=== PATIENT | male | born 1995 | race Caucasian/White ===

== ENCOUNTER 2017-01-22 20:48 | Emergency (ER) | payer BC, OTHER ==
[2017-01-22 21:00] VITALS: BP 143/77
--- NOTE | 2017-01-22 21:04 | UC ---
Throat Pain/Nasal Henrik HPI - HPI Summary HPI Summary: complaint of nasal congestion and cough that started yesterday intermittent headaches productive cough with green sputum feels a tightness in his chest wheezing at night and coughing fits denies sore throat, ear pain denies muscle aches denies fever taking mucinex without relief - History of Current Complaint Chief Complaint: UCRespiratory Stated Complaint: URI Time Seen by Provider: 01/22/17 20:57 Hx Obtained From: Patient - Allergies/Home Medications Allergies/Adverse Reactions: Allergies Allergy/AdvReac Type Severity Reaction Status Date / Time No Known Allergies Allergy Verified 01/22/17 21:00 PMH/Surg Hx/FS Hx/Imm Hx Previously Healthy: Yes Endocrine History Of: 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 Denies: Diabetes Cardiovascular History Of: Denies: Cardiac Disorders, Hypertension Respiratory History Of: Denies: COPD, Asthma GI/ History Of: Denies: Ulcer Psychological History Of: Denies: Anxiety, Depression - Surgical History Surgical History: None - Family History Known Family History: Positive: Hypertension, Diabetes, Other - thyroid problems Negative: Cardiac Disease - Social History Alcohol Use: None Substance Use Type: None Smoking Status (MU): Light Every Day Tobacco Smoker Type: Smokeless Tobacco Amount Used/How Often: 2 CIG/DAY Household Exposure Type: Cigarettes Cessation Counseling: Patient Advised to Stop - Immunization History Vaccination Up to Date: Yes Review of Systems Constitutional: Negative Skin: Negative Eyes: Negative ENT: Nasal Discharge Respiratory: Cough Cardiovascular: Negative Gastrointestinal: Negative Genitourinary: Negative Motor: Negative Neurovascular: Negative Musculoskeletal: Negative Neurological: Negative Psychological: Negative All Other Systems Reviewed And Are Negative: Yes Physical Exam Triage Information Reviewed: Yes Appearance: No Pain Distress, Well-Nourished Vital Signs: Initial Vital Signs Temp 98.4 F 01/22/17 20:54 Pulse 92 01/22/17 20:54 Resp 18 01/22/17 20:54 BP 143/77 01/22/17 20:54 Pulse Ox 96 01/22/17 20:54 Vital Signs Reviewed: Yes Eyes: Positive: Conjunctiva Clear ENT: Positive: Pharyngeal erythema, Nasal congestion, Nasal drainage, TMs normal. Negative: Tonsillar swelling Neck: Positive: No Lymphadenopathy Respiratory: Positive: No respiratory distress, No accessory muscle use, Wheezing - throughout all lung bowers. Negative: Rhonchi, Stridor Cardiovascular: Positive: RRR, No Murmur, Pulses Normal Abdomen Description: Positive: Nontender, Soft Bowel Sounds: Positive: Present Musculoskeletal: Positive: No Edema Neurological: Positive: Alert Psychological Exam: Normal Skin Exam: Normal Re-Evaluation - Re-Evaluation First Eval Re-Evaluation Time: 21:49 Change: Improved - less wheezing ,more air movement throughout all bowers Throat Pain/Nasal Course/Dx - Course Course Of Treatment: will treat with antibiotic/albuterol d/t bronchitis and smoker - Differential Dx/Diagnosis Provider Diagnoses: bronchitis Discharge - Discharge Plan Condition: Stable Disposition: HOME Prescriptions: Albuterol HFA INHALER* [Ventolin HFA Inhaler*] 2 puff INH Q4H PRN #1 mdi PRN Reason: Wheezing Azithromyxin ARSENIO (NF) [Z-Arsenio (Zithromax) 250 mg tabs #6] 2 tab PO .TODAY, THEN 1 DAILY #6 tab Patient Education Materials: Acute Bronchitis (ED), Bronchospasm (ED) Forms: *Work Release Referrals: Criss Jang NP [Primary Care Provider] - Additional Instructions: Your blood pressure is elevated. Please contact your primary care provider within 1 day -4 weeks for further evaluation. Please take antibiotic as directed Use your albuterol inhaler every 4-6 hours when needed for wheezing, shortness of breath or uncontrolled coughing. Increase fluids and rest Take acetaminophen or ibuprofen for fever or pain Please review your discharge instructions. If your symptoms do not improve please call your primary care provider or return to urgent care.
[2017-01-22] MEDS ORDERED: Albuterol/Ipratropium NEB.SOL* Albuterol 2.5 MG/Ipratropium 0.5 MG 3 ML INH ONE (21:24)
[2017-01-22] MEDS ORDERED: Albuterol HFA INHALER* 8 gm MDI INH ONE (21:28)
== END 2017-01-22 21:54 | disposition home or self-care (01) ==
LOC: UCEAST 20:48
DX: J40 Bronchitis, not specified as acute or chronic (principal); F17.210 Nicotine dependence, cigarettes, uncomplicated
CPT/HCPCS: 99213; A9270-GY; G0463

== ENCOUNTER 2017-04-07 07:36 | Emergency (ER) | payer BC, OTHER ==
[2017-04-07 07:43] VITALS: BP 135/73
--- NOTE | 2017-04-07 08:59 | UC ---
Throat Pain/Nasal Henrik HPI - HPI Summary HPI Summary: Patient presents with throat pain and fever x 5 days with worsening symptoms yesterday and today. Temp is 95.5. Pain is located bilaterally and does not radiate. Pain is 5/10 and is worse on the right. No bilateral lymphadenopathy. Denies sick contacts. Denies travel. Denies cough, rhinorrhea, chest pain, SOB or other URI symptoms. He is otherwise healthy. Denies other issues at this time. - History of Current Complaint Chief Complaint: UCRespiratory Stated Complaint: SORE THROAT FEVER Time Seen by Provider: 04/07/17 08:05 Hx Obtained From: Patient Onset/Duration: Gradual Onset Severity: Moderate Pain Intensity: 5 Pain Scale Used: 0-10 Numeric Associated Signs & Symptoms: Positive: Dysphagia, Fever - Epiglottits Risk Factors Epiglottis Risk Factors: Negative - Allergies/Home Medications Allergies/Adverse Reactions: Allergies Allergy/AdvReac Type Severity Reaction Status Date / Time No Known Allergies Allergy Verified 01/22/17 21:00 PMH/Surg Hx/FS Hx/Imm Hx Previously Healthy: Yes - Surgical History Surgical History: None - Family History Known Family History: Positive: Hypertension, Diabetes, Other - thyroid problems Negative: Cardiac Disease - Social History Occupation: Employed Full-time Lives: With Family Alcohol Use: Occasionally Substance Use Type: None Smoking Status (MU): Light Every Day Tobacco Smoker Type: Smokeless Tobacco Amount Used/How Often: 2 CIG/DAY Household Exposure Type: Cigarettes - Immunization History Vaccination Up to Date: Yes Review of Systems Constitutional: Fever Skin: Negative Eyes: Negative ENT: Sore Throat Respiratory: Negative Cardiovascular: Negative Musculoskeletal: Negative Neurological: Negative Psychological: Negative All Other Systems Reviewed And Are Negative: Yes Physical Exam Triage Information Reviewed: Yes Appearance: Well-Appearing, Well-Nourished Vital Signs: Initial Vital Signs Temp 99.5 F 04/07/17 07:40 Pulse 91 04/07/17 07:40 Resp 18 04/07/17 07:40 BP 135/73 04/07/17 07:40 Pulse Ox 98 04/07/17 07:40 Vital Signs Reviewed: Yes Eye Exam: Normal Eyes: Positive: Conjunctiva Clear ENT: Positive: Pharyngeal erythema, Tonsillar swelling Neck exam: Normal Neck: Positive: Nontender, No Lymphadenopathy Respiratory Exam: Normal Respiratory: Positive: Chest non-tender Cardiovascular Exam: Normal Cardiovascular: Positive: RRR Neurological Exam: Normal Neurological: Positive: Alert Psychological: Positive: Normal Response To Family, Age Appropriate Behavior Skin Exam: Normal Throat Pain/Nasal Course/Dx - Course Course Of Treatment: Strep negative. Will send for culture based on the symptoms and physical exam. Pharyngeal erythema with tonsillar swelling without exudates bilaterally. Dysphagia, odynophagia and temp at 99.5. D/t symptoms, will give 5 days of prednisone and await culture results. Patient made aware of results and plan and is OK with discharge. Medications reviewed with patient. - Differential Dx/Diagnosis Differential Diagnosis/HQI/PQRI: Otitis Media, Peritonsillar Abscess, Pharyngitis, URI Provider Diagnoses: Pharyngitis Discharge - Discharge Plan Condition: Stable Disposition: HOME Prescriptions: predniSONE TAB* [Deltasone TAB*] 50 mg PO DAILY #5 tab MDD 1 Patient Education Materials: Pharyngitis (ED) Referrals: Criss Jang [employer] [Primary Care Provider] - Additional Instructions: How can I manage my symptoms? Use lozenges, ice, soft foods, or popsicles to soothe your throat. Drink juice, milk shakes, or soup if your throat is too sore to eat solid food. Drinking liquids can also help prevent dehydration. Gargle with salt water. Mix teaspoon salt in a 1 cup of warm water and gargle. This may help reduce swelling in your throat. Do not smoke. Nicotine and other chemicals in cigarettes and cigars can cause lung damage and make your symptoms worse. Ask your healthcare provider for information if you currently smoke and need help to quit. E-cigarettes or smokeless tobacco still contain nicotine. Talk to your healthcare provider before you use these products.
--- NOTE | 2017-04-09 13:07 | UC ---
Progress - Progress Note Progress Note: Patient has a positive throat culture with H. Flu. Will need to start antibiotic , amoxicillin. sent Rx.
== END 2017-04-07 09:07 | disposition home or self-care (01) ==
LOC: UCEAST 07:36
DX: J02.9 Acute pharyngitis, unspecified (principal); F17.210 Nicotine dependence, cigarettes, uncomplicated
CPT/HCPCS: 87070; 87077; 87185; 87651; 99212; G0463

== ENCOUNTER 2017-07-01 20:45 | Emergency (ER) | payer OTHER ==
[2017-07-01 21:00] VITALS: BP 137/73
--- NOTE | 2017-07-01 22:49 | UC ---
Respiratory Complaint HPI - HPI Summary HPI Summary: FOR THE PAST 2 DAYS PT HAS NOTICED FEELING LIKE IT IS DIFFICULT TO TAKE A DEEP BREATH AFTER HE HEATS BREAD OR OTHER WHEAT CONTAINING PRODUCTS. MOM HAS SOME SORT OF GLUTEN SENSITIVITY. DENIES ABDOMINAL PAIN, BLOATING, DIARHHEA, GAS, NAUSEA, FATIGUE OR WEIGHT LOSS. TODAY STARTED WITH ST AND CONGESTION. HAS BEEN COUGHING. FEELS BETTER AFTER HE THROWS UP. - History of Current Complaint Chief Complaint: UCRespiratory Stated Complaint: SHORTNESS OF BREATH Time Seen by Provider: 07/01/17 21:36 Hx Obtained From: Patient Onset/Duration: Sudden Onset Timing: Intermittent Episodes Severity Initially: Mild Severity Currently: None Pain Intensity: 1 Pain Scale Used: Adult Non Verbal Character: Cough: Productive Aggravating Factors: Allergens - WHEAT Alleviating Factors: Spontaneous Resolution Associated Signs And Symptoms: Negative: Dyspnea, Fever, Pleuritic Chest Pain, Wheezing, Hemoptysis, Dizziness, Calf Pain, Edema, URI, Nasal Congestion, Hoarseness - Allergies/Home Medications Allergies/Adverse Reactions: Allergies Allergy/AdvReac Type Severity Reaction Status Date / Time No Known Allergies Allergy Verified 07/01/17 20:59 PMH/Surg Hx/FS Hx/Imm Hx Endocrine History: Hyperthyroidism - GRAVES - Surgical History Surgical History: None - Family History Known Family History: Positive: Hypertension, Diabetes, Other - thyroid problems Negative: Cardiac Disease - Social History Alcohol Use: Weekly Alcohol Amount: 2 x weekly Substance Use Type: None Smoking Status (MU): Light Every Day Tobacco Smoker Type: Smokeless Tobacco Amount Used/How Often: 4-5 daily Household Exposure Type: Cigarettes - Immunization History Vaccination Up to Date: Yes Review of Systems Constitutional: Negative Skin: Negative ENT: Sore Throat, Nasal Discharge Respiratory: Shortness Of Breath, Cough Cardiovascular: Negative Gastrointestinal: Negative Genitourinary: Negative All Other Systems Reviewed And Are Negative: Yes Physical Exam Triage Information Reviewed: Yes Appearance: Well-Appearing, No Pain Distress, Well-Nourished Vital Signs: Initial Vital Signs Temp 98.2 F 07/01/17 20:54 Pulse 82 07/01/17 20:54 Resp 16 07/01/17 20:54 BP 137/73 07/01/17 20:54 Pulse Ox 99 07/01/17 20:54 Vital Signs Reviewed: Yes Eyes: Positive: Conjunctiva Clear ENT: Positive: Hearing grossly normal, Pharynx normal, TMs normal Neck: Positive: Supple, Nontender, No Lymphadenopathy Respiratory Exam: Normal Cardiovascular Exam: Normal Abdomen Description: Positive: Soft Musculoskeletal: Positive: No Edema Neurological: Positive: Alert Psychological: Positive: Age Appropriate Behavior Skin: Negative: rashes UC Diagnostic Evaluation - Laboratory O2 Sat by Pulse Oximetry: 99 Respiratory Course/Dx - Differential Dx/Diagnosis Provider Diagnoses: ACUTE VIRAL SYNDROME Discharge - Discharge Plan Condition: Stable Disposition: HOME Patient Education Materials: Viral Syndrome (ED) Forms: *Work Release Referrals: Criss Jang NP [Nurse Practitioner] - If Needed Additional Instructions: YOUR SYMPTOMS MAY BE ALL RELATED TO A VIRAL ILLNESS AND WILL HOPEFULLY RESOLVE WITH TIME. IF YOUR SYMPTOMS ARE PERSISTENT YOU WILL NEED TO HAVE FURTHER EVALUATION. GO TO THE ER WITHOUT FAIL IF YOU DEVELOP TROUBLE BREATHING, WORSENING PAIN OR ANY OTHER CONCERNING SYMPTOMS. CALL THE NUMBER BELOW FOR ASSISTANCE IN ESTABLISHING WITH A PCP An additional resource available to assist in finding the appropriate physician for your health care needs is the [facility] ([facility]). You may contact them by calling [phone].
== END 2017-07-01 22:10 | disposition home or self-care (01) ==
LOC: UCEAST 20:45
DX: B34.9 Viral infection, unspecified (principal); F17.210 Nicotine dependence, cigarettes, uncomplicated
CPT/HCPCS: 99211; G0463

== ENCOUNTER 2017-10-11 15:38 | Emergency (ER) | payer OTHER ==
[2017-10-11 15:49] VITALS: BP 130/75
--- NOTE | 2017-10-11 15:49 | UC ---
Back Pain HPI - HPI Summary HPI Summary: 22 year old male with scoliosis presents with complains of right ankle pain. - History of Current Complaint Chief Complaint: UCBackPain Stated Complaint: BACK PAIN Time Seen by Provider: 10/11/17 15:48 Hx Obtained From: Patient Onset/Duration: Gradual Onset Severity Initially: Moderate Severity Currently: Moderate Pain Scale Used: 0-10 Numeric - 5 - Allergies/Home Medications Allergies/Adverse Reactions: Allergies Allergy/AdvReac Type Severity Reaction Status Date / Time No Known Allergies Allergy Verified 07/01/17 20:59 Home Medications: Home Medications Naproxen Sodium [Naproxen Sodium 220 mg] 220 mg PO 10/11/17 [History] PMH/Surg Hx/FS Hx/Imm Hx Previously Healthy: Yes - Surgical History Surgical History: None - Family History Known Family History: Positive: Hypertension, Diabetes, Other - thyroid problems Negative: Cardiac Disease - Social History Alcohol Use: Weekly Alcohol Amount: 2 x weekly Substance Use Type: None Smoking Status (MU): Light Every Day Tobacco Smoker Type: Smokeless Tobacco Amount Used/How Often: 4-5 daily Household Exposure Type: Cigarettes - Immunization History Vaccination Up to Date: Yes Review of Systems Constitutional: Negative Skin: Negative Eyes: Negative ENT: Negative Respiratory: Negative Cardiovascular: Negative Gastrointestinal: Negative Genitourinary: Negative Motor: Negative Neurovascular: Negative Musculoskeletal: Myalgia, Other: - right ankle pain Neurological: Negative Psychological: Negative All Other Systems Reviewed And Are Negative: Yes Physical Exam Triage Information Reviewed: Yes Vital Signs Reviewed: Yes Eye Exam: Normal ENT Exam: Normal Dental Exam: Normal Neck exam: Normal Neck: Positive: 1 Respiratory Exam: Normal Cardiovascular Exam: Normal Abdominal Exam: Normal Musculoskeletal: Positive: Other: - right ankle pain Neurological Exam: Normal Psychological Exam: Normal Skin Exam: Normal Back Pain Course/Dx - Differential Dx/Diagnosis Provider Diagnoses: right ankle sprain/swelling Discharge - Discharge Plan Condition: Stable Disposition: HOME Prescriptions: Meloxicam [Mobic] 7.5 mg PO BID #30 tab Patient Education Materials: Ankle Sprain (ED), Low Back Strain (ED), Acute Low Back Pain (ED) Referrals: [facility] [place] Physical therapy,PT [Medical Doctor] - Jessie Main MD [Primary Care Provider] - Crow Ferro MD [Medical Doctor] -
--- NOTE | 2017-10-11 16:36 | RAD ---
INDICATION: Atraumatic right ankle pain COMPARISON: None TECHNIQUE: AP, lateral, and oblique views were obtained. FINDINGS: The bony structures, joint spaces, and soft tissues are normal for age. IMPRESSION: NEGATIVE EXAMINATION
== END 2017-10-11 17:05 | disposition home or self-care (01) ==
LOC: UCEAST 15:38
DX: S93.401A Sprain of unspecified ligament of right ankle, initial encounter (principal); X58.XXXA Exposure to other specified factors, initial encounter; Y93.9 Activity, unspecified; Y92.9 Unspecified place or not applicable; Y99.9 Unspecified external cause status; Z72.0 Tobacco use
CPT/HCPCS: 99212; G0463

== ENCOUNTER 2017-11-01 23:06 | Emergency (ER) | payer OTHER ==
[2017-11-02] MEDS ORDERED: predniSONE TAB* 20 MG PO ONE
[2017-11-02] MEDS ORDERED: Ketorolac INJ* 60 MG/2 ML VIAL IM ONE
[2017-11-02] MEDS ORDERED: HYDROcodone/ACETAMIN 5-325 MG* 1 TAB PO ONE (00:01)
[2017-11-02] MEDS ORDERED: Diazepam TAB(*) 2 MG PO ONE (00:01)
[2017-11-02] MEDS ORDERED: Diazepam TAB(*) 5 MG PO ONE (00:17)
[2017-11-02] MEDS ORDERED: Diazepam TAB(*) 5 MG ONE (00:20)
--- NOTE | 2017-11-02 00:33 | ED ---
Luis Manzo Abhishek, scribed for Prema Mazariegos MD on 11/01/17 at 2359 . Back Pain - HPI Summary HPI Summary: This patient is a 22 year old M presenting to [facility] accompanied by female with a chief complaint of lower back pain since one month. Pt describes the chronic back pain with acute back pain that radiates to the right ankle. The patient rates the pain 10/10 in severity. Symptoms aggravated by nothing. Symptoms alleviated by nothing. Patient reports ambulation (barely), numbness in leg. Patient denies urinary incontinence, bowel incontinence, numbness to the testicles, fevers, chills, double vision, ear ache, neck pain, chest pain, and SOB, bruising, rashes, anxiety and depression. - History of Current Complaint Chief Complaint: EDBackInjuryPain Stated Complaint: SEVERE BACK PAIN, RIGHT ANKLE INJURY Time Seen by Provider: 11/01/17 23:28 Hx Obtained From: Patient, Other: - female Onset/Duration: Gradual Onset, Lasting Weeks - since one month, Still Present Onset/Duration: Started Weeks Ago - since one month Timing: Lasting Weeks - since one month Back Pain Location: Is Discrete @ - lower back, Radiates To - right ankle Severity Initially: Severe Severity Currently: Severe Pain Intensity: 10 Pain Scale Used: 0-10 Numeric Character: Sharp Aggravating Symptom(s): Nothing Alleviating Symptom(s): Nothing Associated Signs And Symptoms: Positive: Numbness - legs. Negative: Bruising, Fever, Abdominal Pain, Bladder Incontinence, Bowel Incontinence - Allergies/Home Medications Allergies/Adverse Reactions: Allergies Allergy/AdvReac Type Severity Reaction Status Date / Time No Known Allergies Allergy Verified 11/01/17 23:32 PMH/Surg Hx/FS Hx/Imm Hx Endocrine/Hematology History: Reports: Hx Thyroid Disease - GRAVE'S DISEASE Denies: Hx Diabetes Cardiovascular History: Denies: Hx Hypertension, Other Cardiovascular Problems/Disorders Respiratory History: Denies: Hx Asthma, Hx Chronic Obstructive Pulmonary Disease (COPD) GI History: Denies: Hx Ulcer Psychiatric History: Denies: Hx Anxiety, Hx Depression - Cancer History Cancer Type, Location and Year: Graves disease - Immunization History Date of Tetanus Vaccine: unk Date of Influenza Vaccine: utd Infectious Disease History: No Infectious Disease History: Denies: Hx Hepatitis, Hx Human Immunodeficiency Virus (HIV), Traveled Outside the [place] in Last 30 Days - Family History Known Family History: Positive: Hypertension, Diabetes, Other - thyroid problems Negative: Cardiac Disease - Social History Alcohol Use: Occasionally Alcohol Amount: 2 x weekly Substance Use Type: Reports: None Hx Tobacco Use: Yes Smoking Status (MU): Light Every Day Tobacco Smoker Type: Smokeless Tobacco Amount Used/How Often: 4-5 daily Review of Systems Negative: Fever, Chills Negative: Blurred Vision Negative: Sore Throat, Ear Ache Negative: Chest Pain Negative: Shortness Of Breath Gastrointestinal: Other - Negative Bowel incontinence Negative: Abdominal Pain Genitourinary: Other - Negative urinary incontinence Musculoskeletal: Other - Negative neck pain Positive: Other - Back pain and, right ankle pain Negative: Rash, Bruising Neurological: Other - Negative numbness to the testicles Positive: Numbness - legs Negative: Anxious, Depressed All Other Systems Reviewed And Are Negative: No Physical Exam - Summary Physical Exam Summary: Appearance: Laying on the left lateral decubitus position Skin: Warm, dry, no mottling, no rashes, no contusions HEENT: EOMI, PERRL, moist mucous membranes Neck: No masses on the neck, supple Respiratory: Clear to auscultation, breath sounds present, no rales, no rhonchi , no wheezes Cardiovascular: RRR, pulses are symmetrical in both lower and upper extremities Abdomen: Soft, non-tender Bowel Sounds: Present Musculoskeletal: Pain to the right hip no deformity no erythema Not tender Neurological: Symmetric range of motion No paresthesia Psychiatric: Normal affect and mood Triage Information Reviewed: Yes Vital Signs On Initial Exam: Initial Vitals Temp Pulse Resp BP Pulse Ox 96.9 F 62 18 142/91 99 11/01/17 23:08 11/01/17 23:08 11/01/17 23:08 11/01/17 23:08 11/01/17 23:08 Vital Signs Reviewed: Yes - [place] Coma Scale Coma Scale Total: 15 Diagnostics - Vital Signs Vital Signs Temp Pulse Resp BP Pulse Ox 11/01/17 23:08 96.9 F 62 18 142/91 99 - Laboratory Lab Statement: Any lab studies that have been ordered have been reviewed, and results considered in the medical decision making process. Back Pain Course/Dx - Course Course Of Treatment: [facility] by female with a chief complaint of back pain since one month ago. Pt is currently seeing his PCP for back pain and will recieve an MRI. Pain radiates to the right ankle and pt states "numbness" in legs. The pt will be dx with sciatic nerve pain and will be discharged home. Pt is encouraged to follow up with PCP and request MRI to be taken as soon as possible. - Diagnoses Provider Diagnoses: Sciatic nerve pain Discharge - Discharge Plan Condition: Stable Disposition: HOME Referrals: Jessie Main MD [Primary Care Provider] - The documentation as recorded by the Luis andrews Abhishek accurately reflects the service I personally performed and the decisions made by Delilah aden Norma, MD.
[2017-11-02 00:39] VITALS: BP 137/86
== END 2017-11-02 00:37 | disposition home or self-care (01) ==
LOC: ED 23:06
DX: M54.30 Sciatica, unspecified side (principal); F17.290 Nicotine dependence, other tobacco product, uncomplicated
CPT/HCPCS: 96372; 99283; A9270-GY; J1885; J7512

== ENCOUNTER 2017-12-25 14:18 | Emergency (ER) | payer OTHER ==
[2017-12-25 14:23] VITALS: BP 145/83
--- NOTE | 2017-12-25 17:06 | ED ---
Back Pain - HPI Summary HPI Summary: Patient is an otherwise healthy 22-year-old male who presents to the ED with chief complaint of right-sided sciatic pain. He has dealt with this pain for many years and has been out of work due to this reason. He has been seen by a chiropractor and his PCP. He has never been seen by a neurosurgeon. He states in the past few years his hips have twisted, but denies any injury. Pain is 2 out of 10 and radiates to the inner thigh the lateral thigh buttocks and down the right leg. He does not take anything at home for this. He has been using heat. He continues to see a chiropractor. He denies any other injuries or concerns at this time. He states he wanted to get a second opinion. - History of Current Complaint Chief Complaint: EDBackInjuryPain Stated Complaint: BACK & HIP PAIN Time Seen by Provider: 12/25/17 15:30 Hx Obtained From: Patient Onset/Duration: Sudden Onset Onset/Duration: Started Hours Ago, Worse Since - 2 weeks ago Timing: Constant Pain Intensity: 0 Pain Scale Used: 0-10 Numeric Character: Aching Aggravating Symptom(s): Movement Associated Signs And Symptoms: Positive: Negative - Risk Factors AAA Risk Factors: Negative TAD Risk Factors: Negative Cauda Equina Risk Factors: Negative Epidural Abscess Risk Factors: Negative - Allergies/Home Medications Allergies/Adverse Reactions: Allergies Allergy/AdvReac Type Severity Reaction Status Date / Time No Known Allergies Allergy Verified 12/25/17 14:21 PMH/Surg Hx/FS Hx/Imm Hx Previously Healthy: Yes Endocrine/Hematology History: Reports: Hx Thyroid Disease - GRAVE'S DISEASE Denies: Hx Diabetes Cardiovascular History: Denies: Hx Hypertension, Other Cardiovascular Problems/Disorders Respiratory History: Denies: Hx Asthma, Hx Chronic Obstructive Pulmonary Disease (COPD) GI History: Denies: Hx Ulcer Psychiatric History: Denies: Hx Anxiety, Hx Depression - Cancer History Cancer Type, Location and Year: Graves disease - Immunization History Date of Tetanus Vaccine: unk Date of Influenza Vaccine: utd Hx Pertussis Vaccination: No Immunizations Up to Date: Unable to Obtain/Confirm Infectious Disease History: No Infectious Disease History: Denies: Hx Hepatitis, Hx Human Immunodeficiency Virus (HIV), Traveled Outside the [place] in Last 30 Days - Family History Known Family History: Positive: Hypertension, Diabetes, Other - thyroid problems Negative: Cardiac Disease - Social History Occupation: Employed Full-time Lives: With Family Alcohol Use: Occasionally Alcohol Amount: 2 x weekly Hx Substance Use: No Substance Use Type: Reports: None Hx Tobacco Use: Yes Smoking Status (MU): Light Every Day Tobacco Smoker Type: Smokeless Tobacco Amount Used/How Often: 4-5 daily Review of Systems Constitutional: Negative Negative: Fever, Chills Eyes: Negative Cardiovascular: Negative Respiratory: Negative Genitourinary: Negative Positive: no symptoms reported, see HPI, other - denies bladder or bowel dysfunction Positive: Arthralgia, Myalgia Positive: Paresthesia, Numbness - into the inner thigh intermittently, none currently. Negative: Weakness, Syncope, Slurred Speech Psychological: Normal All Other Systems Reviewed And Are Negative: Yes Physical Exam Vital Signs On Initial Exam: Initial Vitals Temp Pulse Resp BP Pulse Ox 99.2 F 82 16 145/83 97 12/25/17 14:21 12/25/17 14:21 12/25/17 14:21 12/25/17 14:21 12/25/17 14:21 Diagnostics - Vital Signs Vital Signs Temp Pulse Resp BP Pulse Ox 12/25/17 15:51 99.2 F 82 16 145/83 99 12/25/17 14:21 99.2 F 82 16 145/83 97 - Laboratory Lab Statement: Any lab studies that have been ordered have been reviewed, and results considered in the medical decision making process. Back Pain Course/Dx - Course Course Of Treatment: During the course of treatment, I have evaluated this patient for her forma syndrome versus lumbar radiculopathy versus sciatica nerve pain to a shifting of the hips. I have offered a x-ray of the pelvis and hips, however I have stated it would not change our course of treatment as patient is stable, has no bladder or bowel dysfunction and is otherwise healthy. He declines at this time. I have offered Flexeril and naproxen, however this will be a very short course and he will need to follow-up for more PT. I have given him a referral for neurosurgery for further evaluation of a possible spine component. He is okay with this plan and discharge and voices no concerns at this time. - Diagnoses Provider Diagnoses: Sciatica Discharge - Discharge Plan Condition: Stable Disposition: HOME Prescriptions: Cyclobenzaprine TAB* [Flexeril TAB*] 10 mg PO BID PRN #10 tab PRN Reason: Pain Naproxen [Naproxen 500 mg] 500 mg PO Q8H PRN #1 tab PRN Reason: Pain Patient Education Materials: Sciatica (ED), Piriformis Syndrome (ED), Lower Back Exercises (ED) Referrals: Jessie Main MD [Primary Care Provider] - Rahul Turner MD [Medical Doctor] - Additional Instructions: Dx. piriformis syndrome Oxycodone-Acetaminophen - This medication may make you drowsy and do not drive or operate machinery with this medication. Only take this medication for breakthrough pain which is not well controlled with over the counter ibuprofen or tylenol. Flexeril: This medication is a muscle relaxant and can help relieve muscle spasms, muscle strain, or pain sensations. Flexeril can cause side effects that may impair your thinking or reactions. Be careful if you drive or do anything that requires you to be awake and alert. Avoid drinking alcohol, which can increase some of the side effects of Flexeril. Return to ED if symptoms worsen or fail to improve, notice worsening swelling, warmth or redness around the joint, develop fever, or pain is uncontrolled with OTC medications. Moist heat to the area for comfort. Warm showers or baths may improve symptoms. It is important to remain mobile as tolerated to prevent stiffening of the joints and delay healing. Follow up with your PCP. If symptoms remain for > 6 weeks, please seek special medical attention from an orthopedic physician.
== END 2017-12-25 15:57 | disposition home or self-care (01) ==
LOC: ED 14:18
DX: M54.30 Sciatica, unspecified side (principal); F17.210 Nicotine dependence, cigarettes, uncomplicated
CPT/HCPCS: 99281

== ENCOUNTER 2018-04-14 19:56 | Emergency (ER) | payer OTHER ==
--- OUTSIDE RECORDS SUMMARY | 2018-04-14 20:22 | XMS REPORT ---
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 Family History Date Family Member(s) Problem(s) Comments General No Current Problems Social History Type Date Description Comments Marital Status Single Lives With Female Partner Occupation Currently Working ETOH Use Occasionally consumes alcohol Smoking Patient is a former smoker Daily Caffeine Consumes on average 1 cup of regular coffee per day Exercise Type/Frequency Exercises regularly Allergies, Adverse Reactions, Alerts Date Description Reaction Status Severity Comments 11/07/2017 NKDA active Medications Medication Date Status Form Strength Qnty SIG Indications Ordering Provider Methimazole Active Tablets 5mg 1 qd Unknown 0 Ibuprofen Hx Tablets 600mg one PO Q 6 Unknown 0 - hour prn 8 Naproxen Hx Tablets 500mg 1 tablet Unknown 0 - with food by mouth 8 twice a day Vital Signs Date Vital Result Comment 03/18/2018 Height 69.5 inches 5'9.50" Weight 180.00 lb BP Systolic Sitting 110 mmHg BP Diastolic Sitting 80 mmHg Pain Level 3 BMI (Body Mass Index) 26.2 kg/m2 02/16/2018 Height 69.5 inches 5'9.50" Weight 180.00 lb BP Systolic Sitting 140 mmHg BP Diastolic Sitting 90 mmHg Pain Level 9 BMI (Body Mass Index) 26.2 kg/m2 12/29/2017 Height 69.5 inches 5'9.50" Weight 180.00 lb BP Systolic Sitting 127 mmHg BP Diastolic Sitting 68 mmHg Pain Level 7 BMI (Body Mass Index) 26.2 kg/m2 11/10/2017 Height 69.5 inches 5'9.50" Weight 180.00 lb Heart Rate 88 /min BP Systolic Sitting 118 mmHg BP Diastolic Sitting 66 mmHg Pain Level 6 BMI (Body Mass Index) 26.2 kg/m2 Results Description No Information Procedures Description No Information Encounters Type Date Location Provider CPT E/M Dx Office Visit 02/16/2018 [facility] Gregory Dewitt M.D. [id number] M51.26 10:[facility]a [facility] Office Visit 12/29/2017 [facility] Nancy Villafuerte PA-C 70490 M51.26 9:45a [facility] Office Visit 11/10/2017 [facility] Nancy Villafuerte PA-C 37641 M51.36 10:15a [facility] M51.16 Plan of Care Future Appointment(s):05/04/2018 9:00 am - Gregory Dewitt M.D. at [facility]03/30/2018 11:00 am - Gregory Dewitt M.D. at [facility]03/18/2018 - Gregory Dewitt M.D.M51.26 Other intervertebral disc displacement, lumbar regionFollow up:6 weeks
[2018-04-14 20:27] VITALS: BP 135/80
--- NOTE | 2018-04-14 20:35 | UC ---
Upper Extremity HPI - HPI Summary HPI Summary: 22 yo male presents with right elbow pain, redness, and swelling. He tells me that 2 days ago he noticed a pimple on his elbow and popped it - then [place]. Yesterday noticed some tenderness and redness to the area. Last night was able to drain some yellow fluid from it. Today seems more enlarged and painful. Denies fever, chills, or decreased ROM. No hx of MRSA. - History of Current Complaint Chief Complaint: UCSkin Stated Complaint: ELBOW INFLAMED WOUND Time Seen by Provider: 04/14/18 20:29 Hx Obtained From: Patient Onset/Duration: Gradual Onset Severity Currently: Mild Pain Intensity: 2 Pain Scale Used: 0-10 Numeric - Allergies/Home Medications Allergies/Adverse Reactions: Allergies Allergy/AdvReac Type Severity Reaction Status Date / Time No Known Allergies Allergy Verified 04/14/18 20:27 PMH/Surg Hx/FS Hx/Imm Hx Endocrine History: Hyperthyroidism - Surgical History Surgical History: None - Family History Known Family History: Positive: Hypertension, Diabetes, Other - thyroid problems Negative: Cardiac Disease - Social History Occupation: Employed Full-time Lives: With Family Alcohol Use: Occasionally Alcohol Amount: 2 x weekly Substance Use Type: None Smoking Status (MU): Light Every Day Tobacco Smoker Type: Cigarettes Amount Used/How Often: 1/2PPD Household Exposure Type: Cigarettes - Immunization History Vaccination Up to Date: Yes Review of Systems Constitutional: Negative Skin: Other - Redness and swelling right elbow Respiratory: Negative Cardiovascular: Negative Neurovascular: Negative Musculoskeletal: Negative Neurological: Negative Psychological: Negative All Other Systems Reviewed And Are Negative: Yes Physical Exam - Summary Physical Exam Summary: GENERAL: NAD. WDWN. No pain distress. SKIN: Right elbow: 2.0cm area of mild erythema and edema with central 5mm area of mild induration. Mild yellow purulent matter able to be expressed. No streaking, bleeding, or drainage. Mild warmth. NECK: Supple. Nontender. No lymphadenopathy. CHEST: No accessory muscle use. Breathing comfortably and in no distress. CV: RRR. Without m/r/g. MSK: Right elbow: FROM. Strength 5/5 NEURO: Alert. CN II-XII grossly intact. PSYCH: Age appropriate behavior. Triage Information Reviewed: Yes Vital Signs: Initial Vital Signs Temp 97.9 F 04/14/18 20:24 Pulse 104 04/14/18 20:24 Resp 14 04/14/18 20:24 BP 135/80 04/14/18 20:24 Pulse Ox 97 04/14/18 20:24 Upper Extremity Course/Dx - Course Course Of Treatment: Cellulitis right elbow. Culture was obtained today. Will start with Augmentin and advise him to f/u or go to ED if redness/edema spreads. - Differential Dx/Diagnosis Provider Diagnoses: Cellulitis right elbow Discharge - Sign-Out/Discharge Documenting (check all that apply): Discharge/Admit/Transfer - Discharge Plan Condition: Stable Disposition: HOME Prescriptions: Amoxicillin/Clavulanate TAB* [Augmentin TAB 875*] 875 mg PO BID #14 tab Patient Education Materials: Cellulitis (DC) Referrals: Jessie Main MD [Primary Care Provider] - Additional Instructions: If you develop a fever, shortness of breath, chest pain, new or worsening symptoms - please call your PCP or go to the ED. - Billing Disposition and Condition Condition: STABLE Disposition: Home
[2018-04-14] MEDS ORDERED: Amoxicillin/Clavulanate TAB* 875 MG PO ONE (20:36)
--- NOTE | 2018-04-15 13:34 | UC ---
- Progress Note Progress Note: I CALLED THE PATIENT AND LEFT A MESSAGE ON HIS VOICEMAIL TO CALL BACK. NEED TO ADVISE OF POSITIVE MRSA ON CULTURE. STOP AUGMENTIN AND START BACTRIM TWICE DAILY FOR 10 DAYS. ERX ALREADY SENT TO [facility]. FOLLOW-UP WITH PCP IF NOT IMPROVING EXPECTED. - TEODORO KAY M.D. Discharge - Sign-Out/Discharge Documenting (check all that apply): Post-Discharge Follow Up - Discharge Plan Condition: Stable Disposition: HOME Prescriptions: Sulfamethox/Trimethoprim DS* [Bactrim DS 800/160 TAB*] 1 tab PO BID #20 tab Patient Education Materials: Cellulitis (DC) Referrals: Jessie Main MD [Primary Care Provider] - Additional Instructions: If you develop a fever, shortness of breath, chest pain, new or worsening symptoms - please call your PCP or go to the ED. - Billing Disposition and Condition Condition: STABLE Disposition: Home
--- NOTE | 2018-04-16 12:04 | UC ---
- Progress Note Progress Note: + MRSA pt change to Bactrim yesterday await wound culture ljj 04/16/2018 Discharge - Sign-Out/Discharge Documenting (check all that apply): Post-Discharge Follow Up - Discharge Plan Condition: Stable Disposition: HOME Prescriptions: Sulfamethox/Trimethoprim DS* [Bactrim DS 800/160 TAB*] 1 tab PO BID #20 tab Patient Education Materials: Cellulitis (DC) Referrals: Jessie Main MD [Primary Care Provider] - Additional Instructions: If you develop a fever, shortness of breath, chest pain, new or worsening symptoms - please call your PCP or go to the ED. - Billing Disposition and Condition Condition: STABLE Disposition: Home
== END 2018-04-14 20:44 | disposition home or self-care (01) ==
LOC: UCEAST 19:56
DX: L03.113 Cellulitis of right upper limb (principal); B95.62 Methicillin resistant Staphylococcus aureus infection as the cause of diseases classified elsewhere; E05.90 Thyrotoxicosis, unspecified without thyrotoxic crisis or storm; F17.210 Nicotine dependence, cigarettes, uncomplicated; Z82.49 Family history of ischemic heart disease and other diseases of the circulatory system; Z83.3 Family history of diabetes mellitus; Z83.49 Family history of other endocrine, nutritional and metabolic diseases
CPT/HCPCS: 87070; 87077; 87186; 87205; 87640; 87641; 99212; A9270-GY; G0463

== ENCOUNTER 2018-04-17 22:53 | Emergency (ER) | payer OTHER ==
--- NOTE | 2018-04-18 02:23 | ED ---
Skin Complaint - HPI Summary HPI Summary: 22 male presents ER with complaints of cellulitis/abscess to right elbow. States he was making many care 4 days ago and placed on antibiotics. Told to days ago he is positive for MRSA. Antibiotic was changed he has taken 3 pills of Bactrim. Culture regarding obtained showing Bactrim was susceptible. Patient stated he was just concerned because now there is an opening and some drainage. One to make sure he got a second opinion and make sure it wasn't a brown recluse spider bite. Has not been out of the state. No fevers or chills. No other complaints at this time. No rash elsewhere. No past medical history. States he does believe it was his it or some kind of bite prior to infection - History of Current Complaint Chief Complaint: EDRashSkinAbscess Time Seen by Provider: 04/18/18 02:10 Stated Complaint: RASH/SENT FROM [facility] Hx Obtained From: Patient Onset/Duration: Started Days Ago, Still Present Skin Exposure Onset/Duration: Days Ago Timing: Constant Onset Severity: Mild Current Severity: None Pain Intensity: 0 Pain Scale Used: 0-10 Numeric Skin Location: Arm - Right forearm near lateral elbow Character: Swelling, Redness, Raised Aggravating Symptom(s): Nothing Alleviating Symptom(s): Treatment PROC TECH: - antibiotics Associated Signs & Symptoms: Negative - Allergy/Home Medications Allergies/Adverse Reactions: Allergies Allergy/AdvReac Type Severity Reaction Status Date / Time No Known Allergies Allergy Verified 04/17/18 23:27 PMH/Surg Hx/FS Hx/Imm Hx Endocrine/Hematology History: Reports: Hx Thyroid Disease - GRAVE'S DISEASE Denies: Hx Diabetes Cardiovascular History: Denies: Hx Hypertension, Other Cardiovascular Problems/Disorders Respiratory History: Denies: Hx Asthma, Hx Chronic Obstructive Pulmonary Disease (COPD) GI History: Denies: Hx Ulcer Psychiatric History: Denies: Hx Anxiety, Hx Depression - Cancer History Cancer Type, Location and Year: Graves disease - Immunization History Date of Tetanus Vaccine: unk Date of Influenza Vaccine: utd Immunizations Up to Date: Yes Infectious Disease History: Yes Infectious Disease History: Denies: Hx Hepatitis, Hx Human Immunodeficiency Virus (HIV), Traveled Outside the [place] in Last 30 Days - Family History Known Family History: Positive: Hypertension, Diabetes, Other - thyroid problems Negative: Cardiac Disease - Social History Alcohol Use: Occasionally Alcohol Amount: 2 x weekly Hx Substance Use: No Substance Use Type: Reports: None Hx Tobacco Use: Yes Smoking Status (MU): Light Every Day Tobacco Smoker Type: Cigarettes Amount Used/How Often: 1/2PPD Review of Systems Constitutional: Negative Cardiovascular: Negative Respiratory: Negative Musculoskeletal: Negative Positive: Rash All Other Systems Reviewed And Are Negative: Yes Physical Exam Vital Signs On Initial Exam: Initial Vitals Temp Pulse Resp BP Pulse Ox 98.5 F 92 16 135/74 98 04/17/18 23:20 04/17/18 23:20 04/17/18 23:20 04/17/18 23:20 04/17/18 23:20 Completion Of Physical Exam Limited Due To: Dementia Appearance: Positive: Well-Appearing, No Pain Distress, Well-Nourished Skin: Positive: Warm, Skin Color Reflects Adequate Perfusion, Dry, Erythema @ - Mild erythema surrounding a dime size opening, head of abscess with purulent drainage mildly warm to touch right forearm no necrosis minimally tender. Firm no significant fluctuance or pocket requiring I&D. Negative: Cold, Numb, Cyanosis @, Pale Head/Face: Positive: Normal Head/Face Inspection Eyes: Positive: Conjunctiva Clear ENT: Positive: Hearing grossly normal, Pharynx normal Neck: Positive: Supple, Nontender, No Lymphadenopathy Respiratory/Lung Sounds: Positive: Clear to Auscultation, Breath Sounds Present. Negative: Decreased Breath Sounds, Rales, Rhonchi, Wheezes Cardiovascular: Positive: Normal, RRR, Pulses are Symmetrical in both Upper and Lower Extremities. Negative: Murmur, Rub Bowel Sounds: Positive: Present Musculoskeletal: Positive: Normal, Strength/ROM Intact Neurological: Positive: Normal, Sensory/Motor Intact, Alert, Oriented to Person Place, Time Diagnostics - Vital Signs Vital Signs Temp Pulse Resp BP Pulse Ox 04/18/18 01:22 98.1 F 88 17 143/76 99 04/17/18 23:20 98.5 F 92 16 135/74 98 - Laboratory Lab Statement: Any lab studies that have been ordered have been reviewed, and results considered in the medical decision making process. Course/Dx - Course Course Of Treatment: Patient wanted to be reevaluated due to the opening of the abscess. However appears to be appropriately draining and not of concern. Already had culture positive for MRSA showing sensitivity to Bactrim.patient has only taken one and a half days of Bactrim. I&D not required at this time. Appears to be healing on its own. Continue Bactrim, warm compresses and ibuprofen. Follow up with primary care provider. Aware worsening signs and symptoms watch out for. No nausea, vomiting, fever or chills. - Differential Diagnoses - Skin Complaint Differential Diagnoses: Abscess, Cellulitis, MRSA - Diagnoses Provider Diagnoses: Abscess of forearm, right Discharge - Sign-Out/Discharge Documenting (check all that apply): Discharge/Admit/Transfer - Discharge Plan Condition: Good Disposition: HOME Patient Education Materials: MRSA (Methicillin-Resistant Staphylococcus Aureus ) (ED), Cellulitis (ED), Abscess (ED) Referrals: Jessie Main MD [Primary Care Provider] - Additional Instructions: Take your already prescribed medication as directed, until entire dose is finished. increase fluid intake. multiple applications of warm compresses. follow up with pcp for recheck in 5-7 days. any new or worsening symptoms please seek medical attention sooner as we discussed. - Billing Disposition and Condition Condition: GOOD Disposition: Home
[2018-04-18 02:41] VITALS: BP 148/87
== END 2018-04-18 02:30 | disposition home or self-care (01) ==
LOC: ED 22:53
DX: L02.413 Cutaneous abscess of right upper limb (principal); L03.113 Cellulitis of right upper limb; F17.210 Nicotine dependence, cigarettes, uncomplicated; R21 Rash and other nonspecific skin eruption
CPT/HCPCS: 99281